=== PATIENT | female | born 1955 | race Caucasian/White ===

== ENCOUNTER 2017-04-04 06:52 | Day surgery (SDC) | payer MEDICARE, BC ==
[2017-04-01 15:40] VITALS: BMI 31.6
[~2017-04-04] VITALS: Ht 165.1 cm; Wt 85.0 kg
[2017-04-04] VITALS (11 sets, daily range): BP systolic 101–138; BP diastolic 56–82; PULSE 74–94; RESP 14–18; Ht 165.1 cm; Wt 85.0 kg
[~2017-04-04 06:52] MED LIST: CEFAZOLIN 2 GM/50 ML (PMX) 50 ML IVPB SCH; SOD CHLORIDE 0.9% 1,000 ML IV SCH
[2017-04-04] MEDS ORDERED: ONDANSETRON 4 MG INJ IV PRN ×2 (07:30→10:00)
[2017-04-04] MEDS ORDERED: HYDROmorphONE (0.2 MG/ML) 10ML SYG IV PRN ×2 (07:30)
[2017-04-04] MEDS ORDERED: OXYCODONE/ACETAMINOPHEN (5/325) TAB PO PRN ×4 (07:30→10:00)
[2017-04-04] MEDS ORDERED: PROCHLORPERAZINE 10 MG INJ IV PRN (07:30)
[2017-04-04] MEDS ORDERED: FENTAnyl 50 MCG/ML VIAL IV PRN (07:30)
[2017-04-04] MEDS ORDERED: MEPERIDINE 25 MG INJ IV PRN (07:30)
[2017-04-04] MEDS ORDERED: DIPHENHYDRAMINE 50 MG INJ IV PRN (07:30)
[2017-04-04] MEDS ORDERED: OMEP20CA16 PO (07:44)
[2017-04-04] MEDS ORDERED: LISI40TA9 PO (07:44)
[2017-04-04] MEDS ORDERED: ATOR40TA68 PO (07:44)
[2017-04-04] MEDS ORDERED: SUCCINYLCHOLINE CHLORIDE 100 MG/5 ML SYG IV ONE (08:08)
[2017-04-04] MEDS ORDERED: FENTAnyl 50 MCG/ML VIAL ONE ×2 (08:08→09:05)
[2017-04-04] MEDS ORDERED: LIDOCAINE 2% (SDV) 5 ML INJ ONE (08:08)
[2017-04-04] MEDS ORDERED: MIDAZOLAM 1 MG/ML 2 ML INJ ONE (08:08)
[2017-04-04] MEDS ORDERED: PROPOFOL 20 ML ONE (08:08)
[2017-04-04] MEDS ORDERED: BUPIVACAINE 0.25% (STERILE-PAK) 30 ML INJ INJ ONE (08:20)
[2017-04-04] MEDS ORDERED: POLYMYXIN/BACITRACIN 1L IRRIG IRR ONE (08:25)
[2017-04-04] MEDS ORDERED: BUPIVACAINE 0.25% (MPF) 30 ML INJ ONE (08:26)
[2017-04-04] MEDS ORDERED: CEFAZOLIN 1 GM INJ ONE (08:35)
[2017-04-04] MEDS ORDERED: ROCURONIUM 50 MG INJ ONE (08:35)
[2017-04-04] MEDS ORDERED: ONDANSETRON 4 MG INJ ONE (08:37)
[2017-04-04] MEDS ORDERED: DEXAMETHASONE 4 MG/ML 1 ML INJ ONE (08:38)
[2017-04-04] MEDS ORDERED: METOCLOPRAMIDE 10 MG INJ ONE (08:38)
[2017-04-04] MEDS ORDERED: EPHEDrine SULFATE 50 MG/5 ML SYG ONE (08:42)
[2017-04-04] MEDS ORDERED: PHENYLephrine (100 MCG/ML) 5ML SYG ONE (08:49)
[2017-04-04] MEDS ORDERED: KETOROLAC 30 MG INJ ONE (08:59)
[2017-04-04] MEDS ORDERED: NEOSTIGMINE 3 MG/3 ML SYRINGE ONE (09:00)
[2017-04-04] MEDS ORDERED: GLYCOPYRROLATE 0.4 MG INJ ONE (09:00)
[2017-04-04] MEDS ORDERED: morphine 2 MG INJ IV PRN (10:00)
[2017-04-04] MEDS ORDERED: KETOROLAC 30 MG INJ IV PRN (10:00)
[2017-04-04] MEDS ORDERED: IBUPROFEN 600 MG TAB PO PRN (10:00)
--- NOTE | 2017-04-04 10:10 | OPR ---
Date/Time of Note Date/Time of Note DATE: 04/04/17 TIME: 10:01 Operative Report Procedure Date: Apr 04, 2017 Preoperative Diagnosis Left inguinal hernia Postoperative Diagnosis 1. Left inguinal hernia 2. Peritoneal adhesions Operation Performed 1. Laparoscopic left inguinal hernia repair with mesh 2. Laparoscopic lysis of adhesions 3. Left ilioinguinal nerve block Surgeon: SHAHEEN GARCIA MD Anesthesia: general Anesthesiologist: JAELYN WILSON MD Estimated Blood Loss: minimal Specimens None Grafts/Implants Covidien Symbotex mesh 10 cm x 15 cm Complications: None Pt Condition Post Procedure: stable Disposition: PACU Indications The patient is a obese 62-year-old female who presented to the office complaining of a painful left groin bulge. She was diagnosed on clinical exam as having a left inguinal hernia. This was confirmed via CT scan. The patient was scheduled for laparoscopic left inguinal hernia repair with mesh; possible open to prevent sequelae of hernia disease which include, but are not limited to : Incarceration and strangulation. All risks and benefits of the procedure including but not limited to: Wound infection, excessive bleeding, postoperative seroma/hematoma formation, nerve injury which may be temporary versus permanent, injury to the reproductive organs default, injury to intra- abdominal organs necessitating subsequent operation, hernia recurrence, chronic pain, etc. were all explained to the patient full detail. The patient fully understood and wished to proceed with the procedure. Informed consent was therefore obtained. Operative\Procedure Findings Small fat-containing left inguinal hernia. Peritoneal adhesions. Procedure Description The patient was brought to the operating room and placed supine on the operating table. Bilateral sequential compression devices were placed on both lower extremities and a dose of prophylactic broad-spectrum perioperative intravenous antibiotics was given. After the induction of smooth general endotracheal anesthesia the patient's abdomen, and groins were prepped and draped in standard surgical fashion. A supraumbilical incision was made using a 15 blade scalpel and a Veress needle was used to access the intra-abdominal cavity atraumatically. Pneumoperitoneum was obtained and the Veress needle was exchanged for a 12 mm trocar through which a. 5 mm 30 laparoscope was placed. Diagnostic laparoscopy showed peritoneal adhesions of the omentum to the abdominal wall in the area of our lateral trocar placement. These adhesions were down using the EndoShears. Two further working ports were placed. They were both 5 mm ports placed 2 cm above the umbilicus in the right and left midclavicular lines. All port sites were anesthetized with 0.25% Marcaine prior to incision. The patient was then placed in reverse Trendelenburg position. A small fat-containing left indirect inguinal hernia was identified. There was no right inguinal hernia identified. Starting from the anterior superior iliac spine on the left side the peritoneum was mobilized off of the underlying transversalis fascia to the level of the left median umbilical ligament. Dissection was continued medially and Alek's ligament and the pubis were identified. The hernia sac was then reduced back into the intra-abdominal cavity as were the hernia contents. A preperitoneal lipoma was identified and also reduced. The round ligament was identified and preserved throughout the entirety of the procedure. Once the hernia sac was completely reduced back into the abdominal cavity a piece of Covidien Symbotex mesh was cut and fashioned to 10 x 15 cm to repair the hernia defect. It covered all possible openings of the myopectineal orifice. The mesh was soaked in antibiotic containing irrigation prior to inserting it into the field. The mesh was secured in place using a secure strap tacker. With the repair complete hemostasis was inspected for and noted to be total. Pneumoperitoneum was then decreased to 10 mmHg and the peritoneum was reapproximated over the mesh using a secure strap tacker. The lipoma was tacked to the peritoneum to further prevent recurrence. Once this was complete the fascia of the supraumbilical port site was reapproximated using an Endo Close device and 0 Vicryl suture. Pneumoperitoneum was released and all remaining trocars were withdrawn under direct vision. Subcutaneous tissues were irrigated with more irrigation. Further local anesthesia was applied around the skin of the incision sites. At this point attention was turned to the left ilioinguinal nerve block. 10 mL of 0.25% Marcaine was injected in a radial fashion proximally 2 cm medial and inferior to the left anterior superior iliac spine. Once this was completed the skin of the incision sites was reapproximated using 4-0 Monocryl sutures in subcuticular fashion. Incisions were cleaned and Dermabond was applied. The patient was awoken from anesthesia and transported to the recovery room in stable condition. All counts were correct at the end of the case x 2. SHAHEEN GARCIA MD Apr 04, 2017 10:10
--- NOTE | 2017-04-04 10:15 | HPN ---
Date/Time of Note Date/Time of Note DATE: 04/04/17 TIME: 10:15 Interval H&P Admission Note Pt. seen H&P reviewed: No system changes SHAHEEN GARCIA MD Apr 04, 2017 10:15
[2017-04-04] MEDS ORDERED: POLYMYXIN/BACITRACIN 1L IRRIG ONE (10:16)
== END 2017-04-04 12:00 | disposition home or self-care (01) ==
LOC: SDS 06:52
PROVIDERS: ATTEND Surgery
DX: K40.90 Unilateral inguinal hernia, without obstruction or gangrene, not specified as recurrent (principal); E11.9 Type 2 diabetes mellitus without complications; I10 Essential (primary) hypertension; E66.9 Obesity, unspecified; Z68.31 Body mass index [BMI] 31.0-31.9, adult
CPT/HCPCS: 49505; J0690; J1100; J1885; J2175; J2250; J2370; J2405; J2710; J2765; J3010; J7999